=== PATIENT | male | born 1980 | race Caucasian/White ===

== ENCOUNTER 2018-02-23 17:50 | Emergency (ER) | payer OTHER ==
[2018-02-23 18:03] VITALS: BP 139/89
--- NOTE | 2018-02-23 18:23 | UC ---
Lower Extremity/Ankle HPI - HPI Summary HPI Summary: This is an otherwise healthy 37 yo male who presents with R leg pain and swelling. His leg was originally injured ~10 days ago while playing soccer. He noted an "egg" develop with some associated pain in the area following the injury. He then traveled by car to [place] this past weekend and reinjured the leg which has been associated with increased pain and swelling. He has been icing intermittently. Denies CP or SOB. - History of Current Complaint Chief Complaint: UCLowerExtremity Stated Complaint: LEG INJURY Pain Intensity: 4 - Allergies/Home Medications Allergies/Adverse Reactions: Allergies Allergy/AdvReac Type Severity Reaction Status Date / Time No Known Allergies Allergy Verified 02/23/18 17:57 Home Medications: Home Medications NK [No Home Medications Reported] 02/23/18 [History Confirmed 02/23/18] PMH/Surg Hx/FS Hx/Imm Hx Previously Healthy: Yes - Surgical History Surgical History: None - Family History Known Family History: Positive: None - Social History Alcohol Use: Weekly Substance Use Type: None Smoking Status (MU): Never Smoked Tobacco Review of Systems Constitutional: Negative Skin: Negative Eyes: Negative ENT: Negative Respiratory: Negative Cardiovascular: Negative Gastrointestinal: Negative Genitourinary: Negative Motor: Negative Neurovascular: Negative Musculoskeletal: Edema, Myalgia Neurological: Negative Psychological: Negative Is Patient Immunocompromised?: No All Other Systems Reviewed And Are Negative: Yes Physical Exam Triage Information Reviewed: Yes Appearance: Well-Appearing Vital Signs: Initial Vital Signs Temp 97.9 F 02/23/18 17:58 Pulse 84 02/23/18 17:58 Resp 18 02/23/18 17:58 BP 139/89 02/23/18 17:58 Pulse Ox 100 02/23/18 17:58 Vital Signs Reviewed: Yes ENT Exam: Normal Neck exam: Normal Respiratory Exam: Normal Respiratory: Positive: Chest non-tender, Lungs clear. Negative: Crackles, Rhonchi, Wheezing Cardiovascular: Positive: RRR, No Murmur Abdominal Exam: Normal Abdomen Description: Positive: Nontender Musculoskeletal: Positive: Strength Intact, ROM Intact, Other: - neg Homans sign. Significant edema of the lower leg with some focality over the medial midshaft of the tibia with some tenderness. Neurological Exam: Normal Psychological Exam: Normal Skin Exam: Normal Lower Extremity Course/Dx - Course Course Of Treatment: Otherwise healthy 37 yo male with lower leg injury 10 days ago who had a recent long car trip with persistent pain and swelling. Concern for DVT. Recommended to patient he proceed to the ER for evaluation by Doppler US. - Differential Dx/Diagnosis Differential Diagnosis/HQI/PQRI: Cellulitis, Compartment Syndrome, Contusion Provider Diagnoses: 1. DVT v hematoma RLE Discharge - Sign-Out/Discharge Documenting (check all that apply): Discharge - Discharge Plan Condition: Stable Disposition: HOME Referrals: Alyce Eubanks NP [Primary Care Provider] - Additional Instructions: PLEASE PROCEED TO THE EMERGENCY DEPARTMENT FOR FURTHER EVALUATION YOU MAY HAVE BLOOD CLOT IN YOUR LEG - Billing Disposition and Condition Condition: STABLE Disposition: HOME
== END 2018-02-23 18:25 | disposition home or self-care (01) ==
LOC: UCEAST 17:50
DX: M79.604 Pain in right leg (principal); M79.89 Other specified soft tissue disorders
CPT/HCPCS: 99212; G0463